=== PATIENT | female | born 1955 | race Caucasian/White ===

== ENCOUNTER 2023-10-09 10:39 | Outpatient (OUT) | payer MEDICARE, SELFPAY ==
--- NOTE | 2023-10-09 10:51 | XR_ITS ---
The [address] [address] Patient Name: RIC BISHOP MRN: [id number] date: 1955 Sex: F Assigned Patient Location: [facility] Current Patient Location: Accession/Order Number: [id number] Exam Date: 10/09/2023 11:00 Report Date: 10/10/2023 06:38 At the request of: SEBASTIÁN BARKSDALE Procedure: XR elbow LT min 3V PROCEDURE: XR elbow LT min 3V HISTORY: Pain In Left Elbow M25.522 ; posterior wall pain since falling 4 days ago COMPARISON: None. FINDINGS: BONES:No fracture, acute abnormality, or significant arthropathy. SOFT TISSUES:Large calcification/degenerative enthesophyte at the flexor tendons insertion into the medial condyle. Additional small corticated calcification distal to the medial condyle most suggestive of heterotopic bone formation from remote injury. EFFUSION:None visible. OTHER: Negative. XR/XR elbow LT min 3V IMPRESSION: 1. No convincing acute fracture. No dislocation or joint effusion. 2. Degenerative changes and suspected sequela of remote injury. Electronically authenticated by: DARIEN YU Date: 10/10/2023 06:38
== END 2023-10-09 10:40 | disposition home or self-care (01) ==
LOC: RAD 10:45
PROVIDERS: PCP Family Medicine; Visit Provider Family Medicine
DX: M25.522 Pain in left elbow (principal)
CPT/HCPCS: 73080

== ENCOUNTER 2023-10-16 09:55 | Outpatient (OUT) | payer MEDICARE, SELFPAY ==
--- NOTE | 2023-10-16 09:59 | MM_ITS ---
Patient Name: RIC BISHOP MR#: [id number] : 1955 Exam Date: 10/16/2023 Ordering Doctor: DR Audra Sandoval M.D. RADIOLOGY REPORT PROCEDURE: MM TOMOSYNTHESIS SCREENING BI COMPARISON: MG MAMM SCREEN KATIE W CAD, 07/23/2018. MG MAMM SCREEN KATIE W CAD, 10/07/2019. INDICATIONS: screening Calculator Name NCI Breast Cancer Risk Assessment Tool 5 Year Breast Cancer Risk 1.90% Lifetime Breast Cancer Risk 5.60% Personal Breast Cancer No Personal Ovarian Cancer No Treatments None Family Cancers Aunt-maternal with breast cancer at age ~60; Grandmother-maternal with uterine cancer at age ~75; Grandmother-paternal with unknown cancer at age ~71. LOCATION: [facility] BREAST COMPOSITION: Heterogeneously dense,which may obscure small masses. FINDINGS: DIAGNOSTIC CATEGORY 2--BENIGN FINDING. NO CHANGE FROM COMPARISON. Scattered benign-appearing nodules are present. Scattered benign-appearing calcifications are present. Scattered benign-appearing lymph nodes are present. RIGHT BREAST: No significant suspicious finding. LEFT BREAST: No significant suspicious finding. RECOMMENDATIONS: ROUTINE MAMMOGRAM AND CLINICAL EVALUATION IN 12 MONTHS. PLEASE NOTE: A NORMAL MAMMOGRAM DOES NOT EXCLUDE THE POSSIBILITY OF BREAST CANCER. A CLINICALLY SUSPICIOUS PALPABLE LUMP SHOULD BE BIOPSIED. Dictated by: Zan Escalona MD on 10/16/2023 at 11:42 Approved by: Zan Escalona MD on 10/16/2023 at 11:43
--- NOTE | 2023-10-16 09:59 | XR_ITS ---
[address] [address] Patient Name: RIC BISHOP MRN: [id number] date: 1955 Sex: F Assigned Patient Location: [facility] Current Patient Location: [facility] Accession/Order Number: [id number] Exam Date: 10/16/2023 10:22 Report Date: 10/16/2023 10:53 At the request of: SEBASTIÁN BARKSDALE Procedure: XR DEXA axial skeleton EXAM: XR DEXA axial skeleton HISTORY: menopause Z78.0 COMPARISON: None. TECHNIQUE: Routine DEXA scan lumbar spine and bilateral hips. FINDINGS: L1-L4: BMD 1.203 g/sq cm and T score 0.2. Left femoral neck: BMD 0.787 g/sq cm and T score -1.8. Left hip total: BMD 0.813 g/sq cm and T score -1.5. Right femoral neck: BMD 0.749 g/sq cm and T score -2.1. Right hip total: BMD 0.804 g/sq cm and T score -1.6. XR/XR DEXA axial skeleton IMPRESSION: Osteopenia. Electronically authenticated by: CATHY ESCOTO Date: 10/16/2023 10:53
== END 2023-10-16 09:56 | disposition home or self-care (01) ==
LOC: MAMMO 09:55
PROVIDERS: PCP Family Medicine; Visit Provider Family Medicine
DX: Z12.31 Encounter for screening mammogram for malignant neoplasm of breast (principal); Z78.0 Asymptomatic menopausal state; Z80.3 Family history of malignant neoplasm of breast; Z80.8 Family history of malignant neoplasm of other organs or systems; Z80.9 Family history of malignant neoplasm, unspecified; M85.80 Other specified disorders of bone density and structure, unspecified site
CPT/HCPCS: 77063; 77067; 77080

== ENCOUNTER 2023-10-26 09:23 | Outpatient (RCR) | payer MEDICARE, SELFPAY | END 2023-10-27 11:16 | disposition home or self-care (01) | LOC: OT 09:23 | PROVIDERS: PCP Family Medicine; Visit Provider Family Medicine | DX: M25.529 Pain in unspecified elbow (principal) | CPT/HCPCS: 97035; 97165 ==

== ENCOUNTER 2024-01-01 14:32 | Outpatient (OUT) | payer MEDICARE, SELFPAY ==
[2024-01-01 15:19] LABS: Basophils Percent Auto 0.4 % (0.2-2.0); Eosinophils Absolute Auto 0.1 10^3/uL (0.0-0.7); Eosinophils Percent Auto 0.8 % (0.9-7.0); Hematocrit 38.4 % (36.0-48.0); Hemoglobin 12.9 g/dL (12.0-16.0); Immature Granulocytes Abs Auto 0.04 10^3/uL (0.00-0.03); Immature Granulocytes Pct Auto 0.5 % (0.0-0.5); Lymphocytes Absolute Auto 1.6 10^3/uL (1.2-3.8); Lymphocytes Percent Auto 21.3 % (20.5-60.0); Mean Corpuscular HGB Conc 33.6 g/dL (29.9-35.2); Mean Corpuscular Hemoglobin 29.9 pg (26.7-34.0); Mean Corpuscular Volume 88.9 fL (81.0-99.0); Mean Platelet Volume 9.6 fL (9.5-13.5); Monocytes Absolute Auto 0.4 10^3/uL (0.3-0.8); Monocytes Percent Auto 5.6 % (1.7-12.0); Neutrophils Absolute Auto 5.4 10^3/uL (1.4-6.5); Neutrophils Percent Auto 71.4 % (43.0-75.0); Platelet Count 218 10^3/uL (150-450); Red Blood Count 4.32 10^6/uL (4.20-5.40); Red Cell Distribution Width 12.4 % (11.0-15.0); White Blood Count 7.6 10^3/uL (4.0-11.0)
[2024-01-01 15:23] LABS: Alanine Aminotransferase 44 U/L (14-59); Albumin Globulin Ratio 1.1; Albumin Level 3.9 g/dL (3.4-5.0); Alkaline Phosphatase 88 U/L (46-116); Anion Gap 14.5; Aspartate Amino Transferase 26 U/L (15-37); BUN Creatinine Ratio 11.4; Bilirubin Total 1.9 mg/dL (0.2-1.0); Calcium 9.8 mg/dL (8.5-10.1); Carbon Dioxide 26.2 mmol/L (21.0-32.0); Chloride 101 mmol/L (98-107); Estimated GFR (African America 57 (>=60); Estimated GFR (Non-African Ame 47 (>=60); Globulin 3.4 g/dL; Glucose 95 mg/dL (74-106); Potassium 3.7 mmol/L (3.5-5.1); Sodium 138 mmol/L (136-145); TSH W/ REFLEX FT4 0.799 uIU/mL (0.358-3.740); Total Protein 7.3 g/dL (6.4-8.2)
[2024-01-01 15:25] LABS: Erythrocyte Sedimentation Rate 16 mm/hr (<=30)
[2024-01-02 06:09] LABS: C-Reactive Protein, Cardiac 0.38 mg/L (0.00-3.00)
[2024-01-03 16:10] LABS: Antinuclear Antibodies, IFA Negative (.)
== END 2024-01-01 14:33 | disposition home or self-care (01) ==
LOC: LAB 14:34
PROVIDERS: PCP Family Medicine; Visit Provider Nurse Practitioner Family
DX: R06.09 Other forms of dyspnea (principal); R53.83 Other fatigue
CPT/HCPCS: 36415; 80053; 82607; 84443; 85025; 85652; 86038; 86140

== ENCOUNTER 2024-01-16 12:56 | Outpatient (OUT) | payer MEDICARE, SELFPAY ==
--- NOTE | 2024-01-16 13:00 | CA_ITS ---
Patient Name: RIC BISHOP MR#: [id number] : 1955 Exam Date: 01/16/2024 Ordering Doctor: ADRI FARFAN CNP ECHOCARDIOGRAM REPORT PROCEDURE: CA ECHO DOPPLER COMPLETE INDICATIONS: Dyspnea on exertion, diabetes, Covid (04/2023) COMPARISON: None. DESCRIPTION: COMPLETE ECHOCARDIOGRAM Real-time transthoracic echocardiography with 2D, M-mode, spectral and color flow Doppler performed. QUALITY: Technical quality was good. 65 , 153#, BSA 1.77 m2, BP 124/86 LEFT VENTRICLE: Normal chamber size. Thickened septal wall. Abnormal septal motion likely related to bundle branch block. Systolic function appears to be at the lower limits of normal. LV EF: Lower limits of normal left ventricular ejection fraction, (50%). DIASTOLIC: Diastolic function is indeterminate. ATRIAL SEPTUM: Visually appears intact. LEFT ATRIUM: Normal chamber size. RIGHT ATRIUM: Normal chamber size. RIGHT VENTRICLE: Normal chamber size. Normal right ventricular systolic function. TRICUSPID VALVE: Normal mobility and thickness. No stenosis with trivial regurgitation. Unable to assess right-sided pressures due to lack of measurable tricuspid regurgitation. MITRAL VALVE: Normal mobility and thickness. No evidence of mitral valve stenosis. There is no mitral annular calcification. Trivial mitral regurgitation. AORTIC VALVE: Normal trileaflet appearance. Thickened aortic valve. Normal leaflet mobility. No evidence of aortic valve stenosis. No aortic regurgitation. AORTIC ROOT: Normal diameter and appearance. Ascending aorta is normal in size. PULMONIC VALVE: Normal thickness and mobility. No stenosis. Mild regurgitation. PERICARDIUM: No evidence of pericardial effusion. IVC: Collapses with inspirations. IVC is normal in size. PLEURA: CONCLUSION: 1. The left ventricle is normal in size and exhibits low normal systolic function. Abnormal septal motion is related to bundle branch block. LVEF is 50%. 2. Normal right ventricular size and systolic function. 3. No significant valvular dysfunction. 4. Unable to assess right-sided pressures due to lack of measurable tricuspid regurgitation. 5. No pericardial effusion. Adult Echocardiography Procedure Report Left Ventricle LVEDD (3.7 - 5.6 cm): 4.98 cm LVESD (2.2 - 4.0 cm): 4.07 cm LVIVS thickness (0.6 - 1.2 cm): 1.06 cm LVPW thickness (0.5 - 1.0 cm): 0.81 cm e': 0.05 m/s E - e': 8.17 LVOT Max Gradient: 1.28 mm[Hg] LVOT Area (cm2): 0.56 m/s Peak Velocity (LVOT): 0.56 m/s LVOT Diameter 2.15 cm Left Atrium LA Volume Index (2D A2C): 28.38 ml/m2 Left Atrium Systolic Dimension: 3.32 cm Mitral Valve MV E to A Ratio: 0.60 Mitral Valve A-Wave Peak Velocity: 0.72 m/s Mitral Valve E-Wave Peak Velocity: 0.43 m/s Right Ventricle Aorta AO Root Diam: 2.92 cm Ascending Ao Diam: 2.52 cm Aortic Valve AoV Area (Peak Cory): 2.20 cm2, 2.20 cm2 Peak Velocity(Antegrade Flow): 0.93 m/s Peak Gradient(Antegrade Flow): 3.44 mm[Hg] Tricuspid Valve Peak Velocity (Regurgitant Flow): 1.97 m/s Pulmonic Valve Mean Gradient: 1.46 mm[Hg] Mean Velocity: 0.56 m/s Peak Velocity: 0.89 m/s, 1.00 m/s Peak Gradient: 4.04 mm[Hg], 3.16 mm[Hg] Right Atrium Right Atrium Systolic Pressure: 40.89 ml, 40.89 ml Dictated by: Jarrett Neff M.D. on 01/17/2024 at 09:24 Approved by: Jarrett Neff M.D. on 01/17/2024 at 09:29
== END 2024-01-16 12:57 | disposition home or self-care (01) ==
LOC: CARD 12:57
PROVIDERS: PCP Family Medicine; Visit Provider Nurse Practitioner Family
DX: R06.09 Other forms of dyspnea (principal); R53.83 Other fatigue
CPT/HCPCS: 93306

== ENCOUNTER 2024-05-06 12:07 | Outpatient (OUT) | payer MEDICARE, SELFPAY ==
--- NOTE | 2024-05-06 12:15 | XR_ITS ---
The [address] [address] Patient Name: RIC BISHOP MRN: [id number] date: 1955 Sex: F Assigned Patient Location: [facility] Current Patient Location: [facility] Accession/Order Number: [id number] Exam Date: 05/06/2024 12:20 Report Date: 05/07/2024 08:38 At the request of: SEBASTIÁN BARKSDALE Procedure: XR lumbar spine 2-3V EXAM: XR hip RT 2V w/ pelvis, XR lumbar spine 2-3V HISTORY: Right Inguinal Pain COMPARISON: None. TECHNIQUE: Routine views were obtained with pelvis and right hip. Routine views of the lumbar spine were obtained. FINDINGS/IMPRESSION: PELVIS WITH RIGHT HIP: 1. There is no evidence of acute fracture or subluxation. 2. 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 LUMBAR SPINE: 1. There is severe loss of disc height with endplate spurring at L5-S1 indicating severe degenerative changes. 2. There is mild loss of disc height with endplate spurring at the remainder of the lumbar spine indicating mild degenerative changes. 3. There is moderate to severe facet joint osteoarthritis at bilateral L4-L5 and L5-S1. Electronically authenticated by: JEOVANY SUERO Date: 05/07/2024 08:38
--- NOTE | 2024-05-06 12:15 | XR_ITS ---
The [address] [address] Patient Name: RIC BISHOP MRN: [id number] date: 1955 Sex: F Assigned Patient Location: [facility] Current Patient Location: [facility] Accession/Order Number: [id number] Exam Date: 05/06/2024 12:20 Report Date: 05/07/2024 08:38 At the request of: SEBASTIÁN BARKSDALE Procedure: XR hip RT 2V w/ pelvis EXAM: XR hip RT 2V w/ pelvis, XR lumbar spine 2-3V HISTORY: Right Inguinal Pain COMPARISON: None. TECHNIQUE: Routine views were obtained with pelvis and right hip. Routine views of the lumbar spine were obtained. FINDINGS/IMPRESSION: PELVIS WITH RIGHT HIP: 1. There is no evidence of acute fracture or subluxation. 2. 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 LUMBAR SPINE: 1. There is severe loss of disc height with endplate spurring at L5-S1 indicating severe degenerative changes. 2. There is mild loss of disc height with endplate spurring at the remainder of the lumbar spine indicating mild degenerative changes. 3. There is moderate to severe facet joint osteoarthritis at bilateral L4-L5 and L5-S1. Electronically authenticated by: JEOVANY SUERO Date: 05/07/2024 08:38
--- OUTSIDE RECORDS SUMMARY | 2024-05-06 12:17 | XMS_ITS | CCD ---
Author Organization [facility] Care Team Providers Care Social Economist Name Role Phone UNKNOWN, PROVIDER Admitting Unavailable UNKNOWN, PROVIDER Attending Unavailable AUDRA BARKSDALE Referring Unavailable AUDRA BARKSDALE Primary Care Unavailable LASHON, AVTAR Admitting Unavailable LASHONDEMETRIUSAVTAR Attending Unavailable SHAMIR, DR AUDRA Koenig Primary Care Unavailable GIGI, DR DARIEN Brady Consulting Unavailable SHAMIR, DR AUDRA Koenig Consulting Unavailable LASHON, AVTAR Consulting Unavailable LASHON, AVTAR Admitting Unavailable LASHON, AVTAR Attending Unavailable SHAMIR, DR AUDRA Koenig Primary Care Unavailable ELIZABETH MALIN Consulting Unavailable LASHON, AVTAR Consulting Unavailable Audra Barksdale Unavailable Audra Barksdale MD Primary Care Provider LILIA RASCON Attending Unavailab AUDRA Pereira Referring Unavailable AUDRA BARKSDALE Primary Care Unavailable ADRI FARFAN Attending Unavailable Allergies Allergy Classification Reported Allergen(s) Allergy Type Date of Onset Reaction(s) Facility Amino Acids (1 source) Amino Acids Drug Allergy 09-15-19 17 [facility] Opioid Agonists (1 source) Meperidine Drug Allergy 09-03-18 80 [facility] Tetracyclines (antibiotic) (1 source) Tetracycline Drug Allergy 09-03-18 80 [facility] (2 sources) Amino Acids; Translations: [LISINOPRIL] Drug Allergy 11-09-19 18 [facility] (3 sources) Lisinopril Drug Allergy 11-09-19 18 Cough, Other: See Comments [facility] (4 sources) Meperidine; Translations: [MEPERIDINE] Drug Allergy 09-03-18 80 Hives, Itching [facility] (6 sources) Tetracycline; Translations: [TETRACYCLINE] Drug Allergy 09-03-18 80 Swelling, Hives, Other: See Comments [facility] (2 sources) Allergies Reconciled Propensity to adverse reactions Unknown inDplay Other (2 sources) patient allergy list reviewed by nurse or physicia Propensity to adverse reactions 09-18-19 19 Comment:Done inDplay Other (1 source) Amino Acids Drug Allergy 09-15-19 17 Unknown [facility] (1 source) Soy protein; Translations: [SOY] Propensity to adverse reactions to drug (disorder) 01-01-20 [facility] Medications Completed/Discontinued Medications Medication Drug Class(es) Dates Sig (Normalized) Sig (Original) aspirin 81 mg delayed release oral tablet (3 sources) Platelet Aggregation Inhibitor, Nonsteroidal Anti-inflammatory Drug Start: 04-05-2021 take 1 tablet by mouth once daily aspirin, enteric coated (ASPIRIN, ENTERIC COATED) 81 mg EC tablet Take 1 tablet by mouth once daily. 0 04/05/2021 Active Comment on above: Take 1 tablet by elenita once daily. atorvastatin 20 mg oral tablet (3 sources) HMG-CoA Reductase Inhibitor Start: 10-27-2023 take 1 tablet by mouth once daily at bedtime atorvastatin (LIPITOR) 20 mg tablet Take 20 mg by mouth daily at bedtime. 0 10/27/2023 Active Start: 04-05-2021 take 20 mg by mouth once daily Atorvastatin Calcium 20 MG Atorvastatin Calcium( 20MG Oral daily ) Active -Hx Entry Oral daily for 0 Apr, Active Comment on above: Take 20 mg by mouth daily at bedtime. 24 hr isosorbide mononitrate 30 mg extended release oral tablet (3 sources) Nitrate Vasodilator Start: take 1 tablet by mouth once daily, then take 1 tablet by mouth every twenty-four hours isosorbide mononitrate ER (IMDUR) 30 mg 24 hr tablet Take 30 mg by mouth once daily. 0 10/27/2023 Active Start: 04-05-2021 take 30 mg by mouth once daily Isosorbide Mononitrate ER 30MG Isosorbide Mononitrate ER( 30MG Oral daily ) Active -Hx Entry Oral daily *Pick strength-form from Emailage for eRX* Apr, Active Comment on above: Take 30 mg by mouth once daily. losartan potassium 100 mg oral tablet (3 sources) Angiotensin 2 Receptor Fernanda Start: 10-29-2023 take 1 tablet by mouth once losartan (COZAAR) 100 mg tablet Take 1 tablet by mouth every afternoon. 0 10/29/2023 Active Start: 01-07-2020 Losartan Fito lang 100 MG Losartan Potassium 50MG, 1 (one) Tablet daily # 30, 01/07/2020, No Refill. Active Oral daily *Pick strength-form from Emailage for eRX* January, Active Comment on above: Take 1 tablet by elenita th every afternoon. 24 hr metoprolol succinate 50 mg extended release oral tablet (3 sources) beta-Adrenergic Fernanda Start: 10-27-2023 take 1 tablet by mouth every hour metoprolol succinate ER (TOPROL XL) 50 mg 24 hr tablet Take 1 tablet by mouth every afternoon. 0 10/27/2023 Active Start: 04-05-2021 take 50 mg by mouth once daily Metoprolol Succinate ER 50MG Metoprolol Succinate ER( 50MG Oral daily ) Active -Hx Entry Oral daily *Pick strength-form from Emailage for eRX* Apr, Active Comment on above: Take 1 tablet by elenita th every afternoon. spironolactone 25 mg oral tablet (3 sources) Aldosterone Antagonist Start: 10-06-2022 spironolactone (ALDACTONE) 25 mg tablet Spironolactone 25 MG 1/2 tablet every am Active 0 10/06/2022 Active Spironolactone 2 5 MG 1/2 tablet every am Active Comment on above: Spironolactone 25 MG 1/2 tablet every am Active Problems Active Problems Problem Classification Problem Date Documented Date Episodic/Chronic Abdominal pain (2 sources) Abdominal pain; Translations: [Unspecified abdominal pain] Episodic Acute bronchitis (2 sources) Acute bronchitis; Translations: [Acute bronchitis, unspecified] Episodic Cancer of uterus (5 sources) Malignant neoplasm of corpus uteri, excluding isthmus; Translations: [Malignant neoplasm of endometrium] Onset: 11-20-2017 10-18-2023 Chronic Cancer of uterus (3 sources) H/O: malignant neoplasm; Translations: [Personal history of malignant neoplasm of other parts of uterus] Episodic Essential hypertension (3 sources) Essential hypertension; Translations: [Essential (primary) hypertension] Chronic Genitourinary symptoms and ill-defined conditions (1 source) Genuine stress incontinence; Translations: [Stress incontinence (female) (male)] 11-14-2023 Chronic Malaise and fatigue (2 sources) Other fatigue; Translations: [Other fatigue] Onset: 01-01-2024 Episodic Menopausal disorders (2 sources) Postmenopausal bleeding; Translations: [Postmenopausal bleeding] Chronic Nonspecific chest pain (6 sources) Precordial pain; Translations: [Chest pain] Onset: 09-21-2020 Episodic Other aftercare (2 sources) History and physical examination, follow-up; Translations: [Encounter for follow-up examination after completed treatment for conditions other than malignant neoplasm] Episodic Other aftercare (1 source) History of malignant neoplasm of endometrium; Translations: [Encounter for follow-up examination after completed treatment for malignant neoplasm] 11-14-2023 Episodic Other and ill-defined heart disease (2 sources) Heart disease; Translations: [Other ill-defined heart diseases] Chronic Other female genital disorders (2 sources) Abnormal uterine bleeding; Translations: [Abnormal uterine and vaginal bleeding, unspecified] Onset: 08-03-2017 Chronic Other injuries and conditions due to external causes (2 sources) History of fall; Translations: [History of falling] Episodic Other lower respiratory disease (6 sources) Other forms of dyspnea; Translations: [OTHER FORMS OF DYSPNEA] Onset: 04-04-2021 Episodic Other lower respiratory disease (2 sources) Dyspnea; Translations: [Shortness of breath] Episodic Other non-traumatic joint disorders (1 source) Pain in left elbow Episodic Other nutritional; endocrine; and metabolic disorders (2 sources) Overweight; Translations: [Overweight] Episodic Other screening for suspected conditions (not mental disorders or infectious disease) (1 source) Encounter for screening mammogram for malignant neoplasm of breast Episodic Prolapse of female genital organs (1 source) Disorder of rectum; Translations: [Rectocele] 11-14-2023 Chronic Regional enteritis and ulcerative colitis (7 sources) Crohn's disease, unspecified, without complications; Translations: [Crohn's disease] Onset: 08-03-2017 Chronic Residual codes; unclassified (1 source) Asymptomatic menopausal state Episodic Unclassified (1 source) CONTACT W/AND (SUSP) EXPOS COVID-19; Translations: [CONTACT W/AND (SUSP) EXPOS COVID-19] Onset: 09-27-2020 Past or Other Problems Problem Classification Problem Date Documented Date Episodic/Chronic Other non-traumatic joint disorders (2 sources) Shoulder joint pain; Translations: [Pain in right shoulder] Onset: 07-23-2018 Episodic Other nutritional; endocrine; and metabolic disorders (2 sources) Body mass index 25-29 - overweight; Translations: [Body mass index 27.0-27.9, adult] Onset: 11-06-2017 Episodic Other upper respiratory infections (2 sources) Acute maxillary sinusitis; Translations: [Acute recurrent maxillary sinusitis] Onset: 09-18-2018 Episodic Otitis media and related conditions (2 sources) Acute secretory otitis media; Translations: [Other acute nonsuppurative otitis media, right ear] Onset: 09-18-2018 Episodic Results Test Name Value Interpretation Reference Range Facility Office Visiton 01-01-2024 Follow-up visit [id number] Dillan Matthews 1955 F Date Provider Department Center 01/01/2024 Mitali-ADRI FARFAN [facility] Family History Problem Relation Age of Onset Supraventricular tachycardia Mother Heart attack Father Deep vein thrombosis Father Family Status - Relation Status Age at Mother Father Level of Service:43450 [place] OFFICE/OUTPATIENT ESTABLISHED MOD MDM 30 MIN Reason for Visit and Comments: Follow-up [067366] - 1 year Normal [facility] CNOVSPon 11-14-2023 CNOVSP Visit (SP) Office (GYNOSA) DILLAN MATTHEWS ([id number]) 1955 F Date Time Provider Department 11/14/23 10:00 AM LILIA RASCON During your visit today, we recorded the following information about you: Temperature Pulse Respiration Blood pressure 97.6 degrees 75/minute 18/minute 117/63 Weight 71 kg Lilia Rascon MD 11/14/2023 11:42 AM Signed DATE OF SERVICE: 11/14/2023 REASON FOR VISIT: history of endometrial cancer-establish care Consultation requested by Dr. Audra Barksdale. My final recommendations will be communicated back to the requesting physician by way of shared Medical record or letter to requesting physician via US mail. DIAGNOSIS: 2018 history stage IA grade 1 endometrial cancer HPI: Audra Barksdale is a 68 yo female with a past medical history of HTN, HLD, angina, Crohn's disease and endometrial cancer. She was seen and treated at [facility]. She is here for follow up transfer of care. No vaginal discharge or bleeding. Patient states x 1 year has a prolapse, causing her to have to reduce it in order to have a good bowel movement. 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 No issues since 2018 surgery. SUBJECTIVE: Dillan Matthews reports she is feeling well. She was seen and treated at [facility]. She is here for follow up transfer of care since her previous [facility]te[facility] onc is no longer practing. No vaginal discharge or bleeding. Patient states she has had a prolapse for a year , causing her to have to reduce it in order to have a good bowel movement. No issues since 2018 surgery. 11/20/2017 FINAL DIAGNOSIS Review of slides from [facility] ([id number], 11/20/2017) 1. Uterus, cervix, bilateral ovaries and fallopian tubes, hysterectomy with bilateral salpingo-oophorectomy : - Cervix: No significant pathologic abnormality. - Endometrium: Endometrioid adenocarcinoma with squamous differentiation, FIGO grade 1, invasive into inner half of the myometrium; see comment. - Myometrium: Leiomyoma. - Left fallopian tube: Paratubal cysts. - Left ovary: No significant pathologic abnormality. - Right fallopian tube: Paratubal cysts. - Right ovary: Surface adhesions. 2. Periaortic lymph nodes, excision: Benign lymph nodes (0/3 per report). 3. Vagina, biopsy: Benign squamous mucosa. 4. Omentum, excision: Benign fibroadipose tissue. 5. Left pelvic lymph nodes, excision: Benign lymph nodes (0/3 per report). 6. Right pelvic lymph nodes, excision: Benign lymph nodes (0/5 per report). DATE OF LAST VISIT: n/a OBSTETRIC/ GYNECOLOGY HISTORY: Gynecologic surgery: see above LMP: menopausal Last Pap: Last HPV: PAST MEDICAL HISTORY Diagnosis Date Angina pectoris (HCC) Crohn's disease (HCC) Endometrial cancer (HCC) 2018 HLD (hyperlipidemia) HTN (hypertension) PAST SURGICAL HISTORY Procedure Laterality Date APPENDECTOMY BOWEL RESECTION HX REMOVAL GALLBLADDER No significant family history HEALTH MAINTENANCE: Last mammogram: 10/16/2023-negative DEXA-10/16/2023-osteop enia ECOG performance status ECOG PERFORMANCE STATUS: 0- Fully active, able to carry on all pre-disease performance w/o restriction. REVIEW OF SYSTEMS PAIN ASSESSMENT: Negative for pain, history of chronic pain, or current treatment for a chronic pain condition. GENERAL: No weight loss, malaise or fevers HEENT: Negative for frequent or significant headaches, No changes in hearing or vision, no nose bleeds or other nasal problems NECK: Negative for lumps, goiter, pain and significant neck swelling RESPIRATORY: Negative for cough, hemoptysis, wheezing, COPD, dyspnea or shortness of breath CARDIOVASCULAR: feels well, has angina history, on cardiac meds GI: No nausea, vomiting, or diarrhea : No history of dysuria, frequency or incontinence [employer]: Negative for abnormal vaginal bleeding, abnormal vaginal discharge MUSCULOSKELETAL: Negative for joint pain or swelling, back pain or muscle pain SKIN: Negative for lesions, rash, and itching PSYCH: situational depresson, recently HEMATOLOGY/LYMPHOLOGY : Negative for prolonged bleeding, bruising easily or swollen nodes ENDOCRINE: Negative for cold or heat intolerance, polyuria, polydipsia and goiter NEURO: No history of headaches, syncope, paralysis, seizures or tremors OBJECTIVE: VITALS: BP 117/63 Pulse 75 Temp (Src) 97.6 (Temporal) Resp 18 Wt 156 lb 8.4 oz (71.0kg) SpO2 97% GENERAL: alert, oriented, pleasant, and cooperative. ABDOMEN: Abdomen soft, non-tender, no palpable masses present HEENT: no adenopathy PELVIC: External genitalia, anus and urethral meatus are normal in appearance and without lesions. Vagina normal in appearance on speculum examination. Posterior and apical prolapse present, urethral hypermobility. Cervix surgically absent. Bimanual pel (more content not included)... Normal [facility] OUTSIDE SURG PATH SLIDE REVI EWon 11-05-2023 CASE REPORT Normal [facility] Comment on above: Order Comment: Speci men Type: FORMALIN-FIXED PARAFFIN-EMBEDDED TISSUE SPECIMEN Ordering Facility: [facility] Review Address: , , Result Comment: [facility] Pathology Report Case: [id number] Authorizing Provider: Lilia Rascon MD Collected: 11/05/2023 02:19 PM Ordering Location: [facility] Received: 11/05/2023 02:19 PM [facility] Pathologist: Freda Velasquez MD Specimen: SLIDE(S), 32 SLIDES [id number] Performed By: #### L [id number] #### [facility] CLIA [id number] [address] [place] [address] DIAGNOSIS COMMENT The tumor shows invasion into inner half of the myometrium (33% per report). No lymphovascular space invasion is identified. Normal [facility] Comment on above: Order Comment: Speci men Type: FORMALIN-FIXED PARAFFIN-EMBEDDED TISSUE SPECIMEN Ordering Facility: [facility] Review Address: , , Performed By: #### L [id number] #### [facility] CLIA [id number] [address] [place] [address] FINAL DIAGNOSIS Normal [facility] Comment on above: Order Comment: Speci men Type: FORMALIN-FIXED PARAFFIN-EMBEDDED TISSUE SPECIMEN Ordering Facility: [facility] Review Address: , , Result Comment: Revi ew of slides from [facility] ([id number], 11/20/2017) 1. Uterus, cervix, bilateral ovaries and fallopian tubes, hysterectomy with bilateral salpingo-oophorectomy: - Cervix: No significant pathologic abnormality. - Endometrium: Endometrioid adenocarcinoma with squamous differentiation, FIGO grade 1, invasive into inner half of the myometrium; see comment. - Myometrium: Leiomyoma. - Left fallopian tube: Paratubal cysts. - Left ovary: No significant pathologic abnormality. - Right fallopian tube: Paratubal cysts. - Right ovary: Surface adhesions. 2. Periaortic lymph nodes, excision: Benign lymph nodes (0/3 per report). 3. Vagina, biopsy: Benign squamous mucosa. 4. Omentum, excision: Benign fibroadipose tissue. 5. Left pelvic lymph nodes, excision: Benign lymph nodes (0/3 per report). 6. Right pelvic lymph nodes, excision: Benign lymph nodes (0/5 per report). Performed By: #### L [id number] #### [facility] CLIA [id number] [address] [place] [address] FINAL PERFORMING LAB Normal [facility] Comment on above: Order Comment: Speci men Type: FORMALIN-FIXED PARAFFIN-EMBEDDED TISSUE SPECIMEN Ordering Facility: Outside Review Address: , , Result Comment: Diag nostic interpretation performed at [facility], [address] [place] [address] CLIA# [id number] [employer]ap Security Architect: Tone Chu M.D. Performed By: #### L [id number] #### [facility] CLIA [id number] [address] [place] [address] ECHOCARDIO M/2D COMPLETEon 0 04-04-2021 ECHOCARDIO M/2D COMPLETE Patient: DILLAN MATTHEWS Exam Date: 04/04/2021 : 1955 Gender:F Ordering : AVTAR OATES Admission #: [id number] Family : DR AUDRA BARKSDALE M.D. Order #: [id number] CLICK HERE TO VIEW EXAM ECHOCARDIOGRAM REPORT PROCEDURE: CARDIO PULMONARY ECHOCARDIO M/2D COMP INDICATIONS: CEJA COMPARISON: None. DESCRIPTION: COMPLETE ECHOCARDIOGRAM Real-time transthoracic echocardiography with 2D, M-mode, spectral and color flow Doppler performed. QUALITY: Technical quality was good. LEFT VENTRICLE: Normal chamber size. Mild concentric left ventricular hypertrophy. Normal left ventricular systolic function with an ejection fraction of 60%. LV EF: DIASTOLIC: Grade I diastolic dysfunction. ATRIAL SEPTUM: LEFT ATRIUM: Normal chamber size. RIGHT ATRIUM: Normal chamber size. RIGHT VENTRICLE: Normal chamber size. Normal right ventricular systolic function. TRICUSPID VALVE: Normal mobility and thickness. No stenosis with trace regurgitation. No evidence of pulmonary hypertension. RVSP is 24mmHg. MITRAL VALVE: Normal mobility and thickness. No mitral valve prolapse. No evidence of mitral valve stenosis. There is no mitral annular calcification. No mitral regurgitation. AORTIC VALVE: Normal trileaflet appearance. No visible sclerosis. Normal leaflet mobility. No evidence of aortic valve stenosis. No aortic regurgitation. AORTIC ROOT: Normal diameter and appearance. PULMONIC VALVE: Normal thickness and mobility. No stenosis. Mild regurgitation. PERICARDIUM: No evidence of pericardial effusion. IVC: Collapes with inspirations. PLEURA: CONCLUSION: 1. Normal ventricular systolic function. 2. Mild diastolic dysfunction. 3. Normal right sided pressures. 4. No significant valvular dysfunction. Adult Echocardiography Procedure Report Left Ventricle LVEDD (3.7 - 5.6 cm): 4.10 cm LVESD (2.2 - 4.0 cm): 2.76 cm LVIVS thickness (0.6 - 1.2 cm): 1.18 cm LVPW thickness (0.5 - 1.0 cm): 9.80 mm e': 6.58 cm/s E - e': 8 LVOT Area (cm2): 3.46 cm2 Peak Velocity (LVOT): 83.40 cm/s LVOT Diameter 2.10 cm Left Ventricular Ejection Fraction: 61.60 % Left Ventricular Ejection Fraction (A4C): 65 % Left Atrium LA Volume Index (2D A2C): 27.90 ml/m2 Left Atrium Systolic Dimension: 3.40 cm Left Atrium Systolic Area(A2C): 18.10 cm2 Left Atrium Systolic Area(A4C): 18.50 cm2 Left Atrium Systolic Volume(A2C): 52338 mm3 Left Atrium Systolic Volume(A4C): 95828 mm3 Mitral Valve MV E to A Ratio: 0.70 Mitral Valve A-Wave Peak Velocity: 78.50 cm/s Mitral Valve E-Wave Peak Velocity: 41.50 cm/s Deceleration Door: 2450 mm/s2 Mitral Valve A-Wave Peak Velocity: 79.50 cm/s Mitral Valve E-Wave Peak Velocity: 52.80 cm/s Right Ventricle RV Internal Diastolic Dimension: 2.91 cm Aorta AO Root Diam: 2.90 cm Aortic Valve Peak Velocity (Antegrade Flow): 114.00 cm/s AoV Area (Peak Cory): 2.51 cm2 Aortic Valve Cusp Separation: 1.70 cm Peak Velocity(Antegrade Flow): 124.00 cm/s Peak Gradient(Antegrade Flow): 6 mm[Hg] Tricuspid Valve Peak Velocity (Regurgitant Flow): 175.00 cm/s, 200.00 cm/s Pulmonic Valve Peak Velocity: 107.00 cm/s Peak Gradient: 5 mm[Hg] Right Atrium Dictated by: Jarrett Neff M.D. on 04/04/2021 at 17:45 Approved by: Jarrett Neff M.D. on 04/04/2021 at 17:48 Normal [facility] HEMOGLOBINon 04-04-2021 Hemoglobin (Bld) [Mass/Vol] 13.2 g/dL Normal 12.0-16.0 [facility] Comment on above: Performed By: #### H GB #### [facility] [address] [place] [address] José Miguel Carol CBC AUTO DIFFon 09-21-2020 BASO # 0.0 103/ul Normal 0.0-0.1 [facility] Comment on above: Performed By: #### C BC #### [facility] [address] [place], [place] [id number] José Miguel Carol Basophils/100 WBC (Bld) 0.5 % Normal 0.2-2.0 [facility] Comment on above: Performed By: #### C BC #### [facility] [address] [place], [place] [id number] José Miguel Carol EO # 0.1 103/ul Normal 0.0-0.7 [facility] Comment on above: Performed By: #### C BC #### [facility] [address] [place] [address] José Miguel Carol Eosinophils/100 WBC (Bld) 1.7 % Normal 0.9-7.0 [facility] Comment on above: Performed By: #### C BC #### [facility] [address] [place], [place] [id number] José Miguel Carol Erythrocyte distribution width (RBC) [Ratio] 14.5 % Normal 11.0-15.0 [facility] Comment on above: Performed By: #### C BC #### [facility] [address] [place], [place] [id number] José Miguel Carol Hematocrit (Bld) [Volume fraction] 42.2 % Normal 36.0-48.0 [facility] Comment on above: Performed By: #### C BC #### [facility] [address] [id number] José Miguel Carol Hemoglobin (Bld) [Mass/Vol] 14.3 g/dL Normal 12.0-16.0 [facility] Comment on above: Performed By: #### C BC #### [facility] [address] [place] [address] José Miguel Carol IG # 0.01 10e3/ul Normal 0.00-0.03 [facility] Comment on above: Performed By: #### C BC #### [facility] [address] [place] [address] José Miguel Carol IG % 0.1 % Normal 0.0-0.5 [facility] Comment on above: Performed By: #### C BC #### [facility] [address] [place] [address] José Miguel Carol LYMPH # 1.6 103/ul Normal 1.2-3.8 [facility] Comment on above: Performed By: #### C BC #### [facility] [address] [place] [address] José Miguel Carol Lymphocytes/100 WBC (Bld) 19.3 % Critically low 20.5-60.0 [facility] Comment on above: Performed By: #### C BC #### [facility] [address] [place] [address] José Miguelvasquez Medina MANUAL DIFF REQ NO Normal [facility] Comment on above: Performed By: #### C BC #### [facility] [address] [place] [address] José Miguel Carol MCH (RBC) [Entitic mass] 30.5 pg Normal 26.7-34.0 [facility] Comment on above: Performed By: #### C BC #### [facility] [address] [place], [place] [id number] José Miguel Carol MCHC (RBC) [Mass/Vol] 33.9 g/dL Normal 29.9-35.2 [facility] Comment on above: Performed By: #### C BC #### [facility] [address] [place] [address] José Miguel Medina MCV (RBC) [Entitic vol] 90.0 fL Normal 81.0-99.0 [facility] Comment on above: Performed By: #### C BC #### [facility] [facility] [address] [address] José Miguel Medina MONO # 0.3 103/ul Normal 0.3-0.8 [facility] Comment on above: Performed By: #### C BC #### [facility] [address] [address] José Miguel Medina Monocytes/100 WBC (Bld) 3.3 % Normal 1.7-12.0 [facility] Comment on above: Performed By: #### C BC #### [facility] [address] [place] [address] José Miguel Medina NEUT # 6.1 103/ul Normal 1.4-6.5 [facility] Comment on above: Performed By: #### C BC #### [facility] [address] [place] [address] José Miguel Medina Neutrophils/100 WBC (Bld) 75.1 % Critically high 43.0-75.0 [facility] Comment on above: Performed By: #### C BC #### [facility] [address] [place] [address] José Miguel Medina Platelet mean volume (Bld) [Entitic vol] 12.5 fL Normal 9.5-13.5 [facility] Comment on above: Performed By: #### C BC #### [facility] [address] [place] [address] José Miguelvasquez Franklinen PLT 304 103/ul Normal 150-450 [facility] Comment on above: Performed By: #### C BC #### [facility] [address] [place], [place] [id number] José Miguel Carol RBC 4.69 106/ul Normal 4.20-5.40 [facility] Comment on above: Performed By: #### C BC #### [facility] [address] [place] [address] José Miguel Carol WBC 8.2 103/ul Normal 4.0-11.0 [facility] Comment on above: Performed By: #### C BC #### [facility] [address] [place], [place] [address] José Miguel Medina CRPon 09-21-2020 CRP [Mass/Vol] mg/L Normal <=1.0 [facility] Comment on above: Performed By: #### C RP, CMP #### [facility] [address] [id number] José Miguel Medina Covid-19 PCR (CVDTBH)on 09-03 EUA Statement SEE BELOW Normal [facility] Comment on above: Result Comment: This test is not yet approved or cleared by the [place] FDA. When there are no FDA-approved or cleared tests available, and other criteria are met, FDA can make tests available under an emergency access mechanism called an Emergency Use Authorization (EUA). The EUA for this test is supported by the Landscape Designer of Health and Human Service?s (HHS?s) declaration that circumstances exist to justify the emergency use of in vitro diagnostics for the detection and/or diagnosis of the virus that causes COVID-19. This EUA will remain in effect (meaning this test can be used) for the duration of the COVID-19 declaration justifying emergency of IVDs, unless it is terminated or revoked by FDA (after which the test may no longer be used). When diagnostic testing is negative, the possibility of a false negative should be considered in the context of a patients recent exposures and the presence of clinical signs and symptoms consistent with SARS-CoV-2. Performed By: #### C VDTBH #### [facility] [address] [address] José Miguel Medina SARS-CoV-2 (COVID-19) RNA DAVID+probe Ql (Unsp spec) Not detected Normal NOT DETECTED [facility] Comment on above: Result Comment: This test is not yet approved or cleared by the [place] FDA. When there are no FDA-approved or cleared tests available, and other criteria are met, FDA can make tests available under an emergency access mechanism called an Emergency Use Authorization (EUA). The EUA for this test is supported by the Landscape Designer of Health and Human Service's (HHS's) declaration that circumstances exist to justify the emergency use of in vitro diagnostics for the detection and/or diagnosis of the virus that causes COVID-19. This EUA will remain in effect (meaning this test can be used) for the duration of the COVID-19 declaration justifying emergency of IVDs, unless it is terminated or revoked by FDA (after which the test may no longer be used). Performed By: #### C VDTB #### [facility] [address] [place] [address] José Miguel Medina PROF 14(COMP METB)on 021 Albumin [Mass/Vol] 3.7 g/dL Normal 3.5-5.0 [facility] Comment on above: Performed By: #### C RP, CMP #### [facility] [address] [place], [place] [id number] José Miguelvasquez Medina Albumin/Globulin [Mass ratio] 1.1 {ratio} Normal [facility] Comment on above: Performed By: #### C RP, CMP #### [facility] [address] [place], [place] [id number] José Miguel Carol ALP [Catalytic activity/Vol] 90 U/L Normal 38-126 [facility] Comment on above: Performed By: #### C RP, CMP #### [facility] [address] [place], [place] [id number] José Miguel Carol ALT [Catalytic activity/Vol] 37 U/L Normal 9-52 [facility] Comment on above: Performed By: #### C RP, CMP #### [facility] [address] [place], [place] [id number] José Miguel Carol Anion gap [Moles/Vol] 14.4 mmol/L Normal [facility] Comment on above: Performed By: #### C RP, CMP #### [facility] [address] [place], [place] [id number] José Miguel Carol AST [Catalytic activity/Vol] 26 U/L Normal 14-36 [facility] Comment on above: Performed By: #### C RP, CMP #### [facility] [address] [place], [place] [id number] José Miguel Carol Bilirubin [Mass/Vol] 1.2 mg/dL Normal 0.2-1.3 [facility] Comment on above: Performed By: #### C RP, CMP #### [facility] [address] [place] [address] José Miguel Carol Calcium [Mass/Vol] 9.3 mg/dL Normal 8.4-10.2 [facility] Comment on above: Performed By: #### C RP, CMP #### [facility] [address] [place] [address] José Miguel Carol Chloride [Moles/Vol] 106 mmol/L Normal 98-107 [facility] Comment on above: Performed By: #### C RP, CMP #### [facility] [address] [place] [address] José Miguel Carol CO2 [Moles/Vol] 22.5 mmol/L Normal 22.0-30.0 [facility] Comment on above: Performed By: #### C RP, CMP #### [facility] [address] [place] [address] José Miguel Carol Creatinine [Mass/Vol] 0.91 mg/dL Normal 0.52-1.04 [facility] Comment on above: Performed By: #### C RP, CMP #### [facility] [address] [place] [address] José Miguel Carol EGFR-AF ANDORRAN >60 Normal >=60 [facility] Comment on above: Performed By: #### C RP, CMP #### [facility] [address] [place] [address] José Miguel Carol EGFR-NON AF ANDORRAN >60 Normal >=60 [facility] Comment on above: Performed By: #### C RP, CMP #### [facility] [address] [place] [address] José Miguel Carol Globulin (S) [Mass/Vol] 3.5 g/dL Normal [facility] Comment on above: Performed By: #### C RP, CMP #### [facility] [address] [place] [address] José Miguel Carol Glucose [Mass/Vol] 129 mg/dL Critically high 74-106 [facility] Comment on above: Performed By: #### C RP, CMP #### [facility] [address] [place], [place] [address] José Miguel Carol Potassium [Moles/Vol] 3.9 mmol/L Normal 3.4-5.0 [facility] Comment on above: Performed By: #### C RP, CMP #### [facility] [address] [place], [place] [address] José Miguel Carol Protein [Mass/Vol] 7.2 g/dL Normal 6.1-8.2 [facility] Comment on above: Performed By: #### C RP, CMP #### [facility] [address] [place], [place] [address] José Miguel Carol Sodium [Moles/Vol] 139 mmol/L Normal 137-145 [facility] Comment on above: Performed By: #### C RP, CMP #### [facility] [address] [place], [place] [address] José Miguel Carol Urea nitrogen [Mass/Vol] 16.0 mg/dL Normal 7.0-17.0 [facility] Comment on above: Performed By: #### C RP, CMP #### [facility] [address] [place], [place] [address] José Miguel Carol Urea nitrogen/Creatinine [Mass ratio] 17.6 mg/mg Normal [facility] Comment on above: Performed By: #### C RP, CMP #### [facility] [address] [place], [place] [address] José Miguel Carol SED RATE [facility] 2020 SED RATE 5 mm/hr Normal <=30 [facility] Comment on above: Performed By: #### S EDR #### [facility] [address] [place], [place] [address] José Miguel Carol XR CHEST 2 Von 09-21-2020 XR CHEST 2 V EXAMINATION: XR CHES T 2 V HISTORY: Precordial pain ; acute chest pain, hypertension COMPARISON: Chest x-ray 06-04-15 FINDINGS: LUNGS: No significant pulmonary parenchymal abnormalities. VASCULATURE: No increased pulmonary vasculature. PLEURA: No pneumothorax, effusion, or pleural thickening. CARDIAC: No cardiomegaly or cardiac silhouette abnormality. MEDIASTINUM: No visible mass or adenopathy. BONES: No fracture or visible bone lesion. OTHER: Negative. IMPRESSION: 1. No acute cardiopulmonary process. Electronically authenticated by: DARIEN YU Date: 2020-09-21 11:43 Normal [facility] Cardiovascular Lab Reporton 02-07-2020 Cardiovascular Lab Report [facility] Patient Name: [facility] Jessica Grimaldo MR #: [id number] Department of Physician: Jarrett Vale Swapnil Neff M.D. Division of Service Date: 02/06/2020 Cardiology Birthdate: 1955 Adult Cardiovascular Room #: [facility] [address] [facility]. [address] [address] Cardiovascular Laboratory Report INDICATION: The patient is a 64-year-old woman, who was evaluated in Cardiology Clinic because of recurrent symptoms of chest pain at rest. She was started on dual antianginal therapy, which improved her symptoms. However, she still continued to have symptoms of chest pain. Because of that, she was referred for cardiac catheterization. PROCEDURE: Bilateral selective coronary angiography from the right radial access. METHODS: Procedure was explained to the patient with risks and benefits. She signed informed consent. She was brought to laboratory operations coordinator in a fasting state. The right wrist area was prepped and draped in usual fashion. Modified Marcelo's test was favorable. Access in right radial artery was obtained using micropuncture technique. A 6-Filipino x 11 cm sheath was placed. Verapamil was given through the sheath and heparin was administered intravenously. Bilateral selective coronary angiography was then performed using 6-Filipino JR5 and JL3.5 diagnostic catheters. Initial catheter advancement was made feasible using an angled Glidewire to overcome brachial tortuosities. Catheters were removed. Procedure was concluded. A TR band was used for hemostasis in the radial artery. She tolerated the procedure well. She will be observed for 3 hours and then discharged to home. TOTAL FLUORO TIME: 2.56 minutes. TOTAL AIR KARMA: 256 mGy. TOTAL CONTRAST VOLUME: 45 mL. HEMODYNAMICS: AO 145/73, mean 104. CORONARY ANGIOGRAPHY: This is a right dominant circulation. Left main arises from left coronary cusp. It bifurcates into left anterior descending and circumflex vessels. Left main is free of disease. Left anterior descending. This is free of disease. Circumflex vessel is free of disease. Right coronary artery. This arises from right coronary cusp. It is a large and dominant vessel. It is free of disease. SUMMARY OF THE FINDINGS: Normal coronary angiogram. RECOMMENDATIONS: 1. Continue medical therapy. 2. The patient's symptoms may be related to spasm. Therefore, we will continue nitrate therapy and follow up response in Cardiology Clinic. Electronically Signed by: Jarrett Neff M.D. 02/08/2020 11:05 P Jarrett Neff M.D. Date Dict: 02/06/2020/03:03 P/Jarrett Neff M.D. Date Trans: 02/07/2020 01:03 A/angel [id number] Normal [facility] Vital Signs Date Time Vital Sign Value Performing Clinician Facility 11-14-2023 10:31-0400 Body temperature 97.59 [degF] Lilia Rascon MD Work Phone: [facility] 11-14-2023 10:31-0400 Body weight 71 kg Lilia Rascon MD Work Phone: [facility] 11-14-2023 10:31-0400 Diastolic blood pressure 63 mm[Hg] Lilia Rascon MD Work Phone: [facility] 11-14-2023 10:31-0400 Heart rate 75 /min Lilia Rascon MD Work Phone: [facility] 11-14-2023 10:31-0400 Respiratory rate 18 /min Lilia Rascon MD Work Phone: [facility] 11-14-2023 10:31-0400 SaO2% (BldA) [Mass fraction] 97 % Lilia Rascon MD Work Phone: [facility] 11-14-2023 10:31-0400 Systolic blood pressure 117 mm[Hg] Lilia Rascon MD Work Phone: [facility] 10-09-2023 09:30-0500 Body height 165.1 cm Audra Barksdale Other [facility] Other 10-09-2023 09:30-0500 Body mass index (BMI) [Ratio] 25.59 kg/m2 Audra Barksdale Other [facility] Other 10-09-2023 09:30-0500 Body weight 69.76 kg Audra Barksdale Other [facility] Other 10-09-2023 09:30-0500 Diastolic blood pressure 59 mm[Hg] Audra Barksdale Other [employer] Other 10-09-2023 09:30-0500 Systolic blood pressure 87 mm[Hg] Audra Barksdale Other [employer] Other Encounters Encounter Date Encounter Type Care Provider Facility Start: 01-01-2024 End: 01-01-2024 ambulatory [facility] Start: 11-14-2023 End: 11-14-2023 ambulatory LILIA RASCON Facility:[facility] Start: 11-14-2023 End: 11-14-2023 Follow-up encounter Lilia Rascon MD Work Phone: [facility] Comment on above: Endometrial cancer ( HCC) (Primary Dx); Rectocele; Encounter for follow-up surveillance of endometrial cancer [Z08, Z85.42]; Stress incontinence of urine [N39.3] Start: 11-14-2023 End: 11-14-2023 Patient encounter procedure Lilia Rascon MD Work Phone: [facility] Start: 10-18-2023 Orders Only Jolynn Kumar APRN.CNP Work Phone: [facility]cology Oncology Comment on above: Endometrial cancer ( HCC) (Primary Dx) Start: 10-11-2023 End: 10-11-2023 ambulatory Audra Barksdale Other [facility] Other Start: 10-11-2023 Telephone [address] Barksdale [facility] Start: 10-09-2023 End: 10-09-2023 ambulatory Audra Barksdale Other [facility] Other Start: 10-09-2023 Patient encounter procedure Audra Barksdale [facility] Start: 04-04-2021 End: 04-05-2021 ambulatory AVTAR OATES Facility:[facility] Start: 09-21-2020 End: 09-22-2020 ambulatory AVTAR OATES Facility:[facility] Start: 02-06-2020 End: 02-07-2020 Patient encounter procedure PROVIDER UNKNOWN Facility:[facility] Procedures Date Procedure Procedure Detail Performing Clinician Start: 11-29-2017 Removal of suture Karen puja Shamir Other Start: 11-06-2017 Pre-surgery evaluation Audra Barksdale Other Depression screening Audra Barksdale Other Screening for malign ant neoplasm of breast Audra Barksdale Other Plan of Treatment Date Care Activity Detail Author Start: 09-03-2023 Advance Directive Discussion Advance Directive Discussion [facility] Start: 09-03-2023 Depression Assessment Depression Ass essment [facility] Start: 05-04-2023 Covid-19 Vaccine () Covid-19 Vaccine () [facility] Start: 05-04-2023 Influenza vaccination Influenza Vacc ine (#1) [facility] Start: 10-15-2020 Diabetes Screening Diabetes Screenin g [facility] Start: 10-07-2020 Screening for malign ant neoplasm of breast Mammogram Screening [facility] Start: 2018 Pneumococcal Vaccine : 65+ (1 of 1 - PCV) Pneumococcal Vaccine: 65+ (1 of 1 - PCV) [facility] Start: 2018 Screening for osteoporosis Bone Density Screening [facility] Start: 2013 RSV Vaccine (1 - 1-d ose 60+ series) RSV Vaccine (1 - 1-dose 60+ series) [facility] Start: 2003 Shingrix Vaccine (1 of 2) Shingrix Vaccine (1 of 2) [facility] Start: 1998 Lipid panel Lipid Screening [facility] Start: 1998 Screening for malign ant neoplasm of colon [facility] Start: 1993 Screening for malign ant neoplasm of breast Mammogram Screening [facility] Start: 1972 Urine microalbumin profile DTaP,Tdap,Td Vaccine (1 - Tdap) [facility] Start: 1971 Hepatitis C screening Hepatitis C Sc reening [facility] Start: 1955 Covid-19 Vaccine (#1) Covid-19 Vacci ne (#1) [facility] OUTSIDE SURG PATH SL SABINO REVIEW OUTSIDE SURG PATH SLIDE REVIEW Lab Routine Endometrial cancer (HCC) Ordered: 10/18/2023 [facility] Work Phone: Comment on above: Ordered: 10/18/2023 OUTSIDE SURG PATH SL SABINO REVIEW OUTSIDE SURG PATH SLIDE REVIEW Lab Routine Endometrial cancer (HCC) Ordered: 11/06/2023 [facility] Work Phone: Comment on above: Ordered: 11/06/2023 [facility] Payers Date Payer Category Payer Medicare AETNA MEDICARE A ETNA MEDICARE O [id number] 2021-Present [phone] [address] [place] [address] [facility] [id number] 1961 Medicare [id number] 1955 Unknown [id number] 1955 Unknown [id number] 1955 Unknown [id number] Unknown [id number] Social History Date Type Detail Facility Unknown if ever smoked [facility] Other Start: 11-14-2023 Sex Assigned At N [facility] [email or web address] Other Tobacco smoking status NDIS Tobacco smoking consumption unknown [facility] Work Phone: Start: 1955 Sex Assigned At Not on file [facility] Start: 11-14-2023 Tobacco smoking status NHIS Never smoked tobacco [facility] Start: 11-14-2023 Tobacco use and exposure Smokeless tobacco non-user [facility] Start: 11-14-2023 Alcohol intake Ex-drinker (finding) [facility] Start: 11-14-2023 History of Social function [facility] Progress note 01-01-2024 Note Date & Type Note Facility 01-01-2024 Note [facility] SUBJECTIVE Chief Complaint Patient presents with Follow-up 1 year Delaysidney Matthews is a 68 y.o. female here for follow-up. HPI PMHx: HTN, prinzmetal angina BP has been well controlled at home running 110-120/60-70s She c/o being easily fatigued. She has SOB with exertion. This has be noticeable since Hx COVID last year. She used the push mower yesterday she was SOB with this and she felt some chest heaviness/tightness. This resolved with rest. She admits she is not very active. Denies orthopnea, palpitations, LE edema. Patient Active Problem List Diagnosis Chest pain Crohn's colitis (CMS/HCC) Endometrial carcinoma (CMS/HCC) Fibrocystic breast disease (FCBD) Benign essential HTN Mixed hyperlipidemia No past medical history on file. Family History Problem Relation Name Age of Onset Supraventricular tachycardia Mother Heart attack Father Deep vein thrombosis Father Social History Tobacco Use Smoking status: Never Smokeless tobacco: Never Substance Use Topics Alcohol use: Not Currently Allergies Allergen Reactions Lisinopril Cough and Other Meperidine Hives Soy Tetracycline Hives and Swelling Review of Systems Constitutional: Positive for malaise/fatigue. Negative for chills, decreased appetite, fever and weight gain. Cardiovascular: Positive for chest pain (chest heaviness/tightness/discomfort) and dyspnea on exertion. Negative for irregular heartbeat, leg swelling, near-syncope, orthopnea, palpitations, paroxysmal nocturnal dyspnea and syncope. Hematologic/Lymphatic: Negative for bleeding problem. Does not bruise/bleed easily. OBJECTIVE Visit Vitals BP 128/76 (BP Location: Left arm, Patient Position: Sitting, BP Cuff Size: Adult) Pulse 74 Resp 16 Ht 1.651 m (5' 5 ) Wt 74.8 kg (165 lb) SpO2 99% BMI 27.46 kg/m??? Smoking Status Never BSA 1.85 m??? Medications: Current Outpatient Medications: aspirin 81 mg EC tablet, Take 1 tablet every day by oral route., Disp: , Rfl: atorvastatin (Lipitor) 20 mg tablet, Take 1 tablet (20 mg) by mouth at bedtime., Disp: 90 tablet, Rfl: 3 isosorbide mononitrate ER (Imdur) 30 mg 24 hr tablet, Take 1 tablet (30 mg) by mouth once daily as directed., Disp: 90 tablet, Rfl: 3 losartan (Cozaar) 100 mg tablet, Take 1 tablet every day by oral route., Disp: 90 tablet, Rfl: 3 metoprolol succinate XL (Toprol-XL) 50 mg 24 hr tablet, Take 1 tablet (50 mg) by mouth once daily as directed., Disp: 90 tablet, Rfl: 3 spironolactone (Aldactone) 25 mg tablet, Take 1 tablet (25 mg) by mouth in the morning. (Patient taking differently: Take 25 mg by mouth in the morning. Take 1/2 table by mouth daily), Disp: 90 tablet, Rfl: 3 Physical Exam Vitals reviewed. Constitutional: Appearance: Normal appearance. She is normal weight. HENT: Head: Normocephalic and atraumatic. Right Ear: External ear normal. Left Ear: External ear normal. Eyes: Extraocular Movements: Extraocular movements intact. Conjunctiva/sclera: Conjunctivae normal. Pupils: Pupils are equal, round, and reactive to light. Neck: Vascular: No carotid bruit. Cardiovascular: Rate and Rhythm: Normal rate and regular rhythm. Pulses: Normal pulses. Heart sounds: Normal heart sounds. Pulmonary: Effort: Pulmonary effort is normal. Breath sounds: Normal breath sounds. Abdominal: General: Bowel sounds are normal. Palpations: Abdomen is soft. Musculoskeletal: Cervical back: Neck supple. Right lower leg: No edema. Left lower leg: No edema. Skin: General: Skin is warm and dry. Neurological: General: No focal deficit present. Mental Status: She is alert and oriented to person, place, and time. Psychiatric: Mood and Affect: Mood normal. Behavior: Behavior normal. Thought Content: Thought content normal. Judgment: Judgment normal. Labs: 01/05/2023 Chol 96, trig 96, HDL 61, LDL 16 Cr 0.9, BUN 12, K 5.1, eGFR 69, AST 22, ALT 31 CBC - unremarkable Mag 1.8 Testing/Procedures: ECHO 04/04/2021 01/20/2020 Echo Left Ventricle: The left ventricle is normal size. Global left ventricular systolic function is normal. The EF is 55 % visually. Left ventricular wall thickness is normal. The septum is abnormal in its motion. Grade 1, mild diastolic dysfunction (abnormal relaxation). Right Ventricle: The right ventricle is normal in size. Normal right ventricular systolic function. Doppler studies suggest normal right sided pressures. Left Atrium: The left atrium is normal in size. Overall Conclusions: No significant valvular abnormalities 02/06/2020 Cardiac cath- normal coronary angiogram. Symptoms may be r/t coronary vasospasm ASSESSMENT/PLAN: Diagnoses and all orders for this visit: Dyspnea on exertion - Transthoracic echo (TTE) complete; Future - CBC; Future - Comprehensive metabolic panel; Future - Vitamin B12; Future - TSH3 Reflex to FT4; Future Other (more content not included)... [facility] Progress note 11-14-2023 Note Date & Type Note Facility 11-14-2023 Note HNO ID: [id number] Author: LILIA RASCON MD Service: ? Author Type: Physician Type: Progress Notes Filed: 11/14/2023 11:42 Note Text: DATE OF SERVICE: 11/14/2023 REASON FOR VISIT: history of endometrial cancer-establish care Consultation requested by Dr. Audra Barksdale. My final recommendations will be communicated back to the requesting physician by way of shared Medical record or letter to requesting physician via US mail. DIAGNOSIS: 2018 history stage IA grade 1 endometrial cancer HPI: Audrajevon Barksdale is a 68 yo female with a past medical history of HTN, HLD, angina, Crohn's disease and endometrial cancer. She was seen and treated at [facility]. She is here for follow up transfer of care. No vaginal discharge or bleeding. Patient states x 1 year has a prolapse, causing her to have to reduce it in order to have a good bowel movement. 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 No issues since 2018 surgery. SUBJECTIVE: Dillan Matthews reports she is feeling well. She was seen and treated at [facility]. She is here for follow up transfer of care since her previous flavoring oil filterer onc is no longer practing. No vaginal discharge or bleeding. Patient states she has had a prolapse for a year , causing her to have to reduce it in order to have a good bowel movement. No issues since 2018 surgery. 11/20/2017 FINAL DIAGNOSIS Review of slides from [facility] ([id number], 11/20/2017) 1. Uterus, cervix, bilateral ovaries and fallopian tubes, hysterectomy with bilateral salpingo-oophorectomy: - Cervix: No significant pathologic abnormality. - Endometrium: Endometrioid adenocarcinoma with squamous differentiation, FIGO grade 1, invasive into inner half of the myometrium; see comment. - Myometrium: Leiomyoma. - Left fallopian tube: Paratubal cysts. - Left ovary: No significant pathologic abnormality. - Right fallopian tube: Paratubal cysts. - Right ovary: Surface adhesions. 2. Periaortic lymph nodes, excision: Benign lymph nodes (0/3 per report). 3. Vagina, biopsy: Benign squamous mucosa. 4. Omentum, excision: Benign fibroadipose tissue. 5. Left pelvic lymph nodes, excision: Benign lymph nodes (0/3 per report). 6. Right pelvic lymph nodes, excision: Benign lymph nodes (0/5 per report). DATE OF LAST VISIT: n/a OBSTETRIC/ GYNECOLOGY HISTORY: Gynecologic surgery: see above LMP: menopausal Last Pap: Last HPV: PAST MEDICAL HISTORY Diagnosis Date Angina pectoris (HCC) Crohn's disease (HCC) Endometrial cancer (HCC) 2018 HLD (hyperlipidemia) HTN (hypertension) PAST SURGICAL HISTORY Procedure Laterality Date APPENDECTOMY BOWEL RESECTION HX REMOVAL GALLBLADDER No significant family history HEALTH MAINTENANCE: Last mammogram: 10/16/2023-negative DEXA-10/16/2023-osteopenia ECOG performance status ECOG PERFORMANCE STATUS: 0- Fully active, able to carry on all pre-disease performance w/o restriction. REVIEW OF SYSTEMS PAIN ASSESSMENT: Negative for pain, history of chronic pain, or current treatment for a chronic pain condition. GENERAL: No weight loss, malaise or fevers HEENT: Negative for frequent or significant headaches, No changes in hearing or vision, no nose bleeds or other nasal problems NECK: Negative for lumps, goiter, pain and significant neck swelling RESPIRATORY: Negative for cough, hemoptysis, wheezing, COPD, dyspnea or shortness of breath CARDIOVASCULAR: feels well, has angina history, on cardiac meds GI: No nausea, vomiting, or diarrhea : No history of dysuria, frequency or incontinence FOAMITE MIXER: Negative for abnormal vaginal bleeding, abnormal vaginal discharge MUSCULOSKELETAL: Negative for joint pain or swelling, back pain or muscle pain SKIN: Negative for lesions, rash, and itching PSYCH: situational depresson, recently HEMATOLOGY/LYMPHOLOGY: Negative for prolonged bleeding, bruising easily or swollen nodes ENDOCRINE: Negative for cold or heat intolerance, polyuria, polydipsia and goiter NEURO: No history of headaches, syncope, paralysis, seizures or tremors OBJECTIVE: VITALS: BP 117/63 Pulse 75 Temp (Src) 97.6 (Temporal) Resp 18 Wt 156 lb 8.4 oz (71.0kg) SpO2 97% GENERAL: alert, oriented, pleasant, and cooperative. ABDOMEN: Abdomen soft, non-tender, no palpable masses present HEENT: no adenopathy PELVIC: External genitalia, anus and urethral meatus are normal in appearance and without lesions. Vagina normal in appearance on speculum examination. Posterior and apical prolapse present, urethral hypermobility. Cervix surgically absent. Bimanual pelvic negative for pelvic masses. ASSESSMENT: 68 y/o female presenting for endometrial cancer surveillance, stage IA grade 1 endometrial cancer s/p staging [place] [address] Velez in [place]. She has no acute complaints today aside from vaginal bulge and urinary incontience. IA grade 1 EC SAMANTHA on exam today (more content not included)... [facility] History of Present illness Narrative 11-14-2023 Lilia Rascon MD - 11/14/2023 10:00 AM EDT Note Date & Type Note Facility 11-14-2023 History of Presen t illness Narrative Images from the original note were not included. DATE OF SERVICE: 11/14/2023 REASON FOR VISIT: history of endometrial cancer-establish care Consultation requested by Dr. Audra Barksdale. My final recommendations will be communicated back to the requesting physician by way of shared Medical record or letter to requesting physician via US mail. DIAGNOSIS: 2018 history stage IA grade 1 endometrial cancer HPI: Audra Barksdale is a 68 yo female with a past medical history of HTN, HLD, angina, Crohn's disease and endometrial cancer. She was seen and treated at [facility]. She is here for follow up transfer of care. No vaginal discharge or bleeding. Patient states x 1 year has a prolapse, causing her to have to reduce it in order to have a good bowel movement. 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 No issues since 2018 surgery. SUBJECTIVE: Dillan Matthews reports she is feeling well. [facility]. She is here for follow up transfer of care since her previous flavoring oil filterer onc is no longer practing. No vaginal discharge or bleeding. Patient states she has had a prolapse for a year , causing her to have to reduce it in order to have a good bowel movement. No issues since 2018 surgery. 11/20/2017 FINAL DIAGNOSIS Review of slides from [facility] ([id number], 11/20/2017) 1. Uterus, cervix, bilateral ovaries and fallopian tubes, hysterectomy with bilateral salpingo-oophorectomy: - Cervix: No significant pathologic abnormality. - Endometrium: Endometrioid adenocarcinoma with squamous differentiation, FIGO grade 1, invasive into inner half of the myometrium; see comment. - Myometrium: Leiomyoma. - Left fallopian tube: Paratubal cysts. - Left ovary: No significant pathologic abnormality. - Right fallopian tube: Paratubal cysts. - Right ovary: Surface adhesions. 2. Periaortic lymph nodes, excision: Benign lymph nodes (0/3 per report). 3. Vagina, biopsy: Benign squamous mucosa. 4. Omentum, excision: Benign fibroadipose tissue. 5. Left pelvic lymph nodes, excision: Benign lymph nodes (0/3 per report). 6. Right pelvic lymph nodes, excision: Benign lymph nodes (0/5 per report). DATE OF LAST VISIT: n/a OBSTETRIC/ GYNECOLOGY HISTORY: Gynecologic surgery: see above LMP: menopausal Last Pap: Last HPV: PAST MEDICAL HISTORY Diagnosis Date Angina pectoris (HCC) Crohn's disease (HCC) Endometrial cancer (HCC) 2018 HLD (hyperlipidemia) HTN (hypertension) PAST SURGICAL HISTORY Procedure Laterality Date APPENDECTOMY BOWEL RESECTION HX REMOVAL GALLBLADDER No significant family history HEALTH MAINTENANCE: Last mammogram: 10/16/2023-negative DEXA-10/16/2023-osteopenia ECOG performance status ECOG PERFORMANCE STATUS: 0- Fully active, able to carry on all pre-disease performance w/o restriction. REVIEW OF SYSTEMS PAIN ASSESSMENT: Negative for pain, history of chronic pain, or current treatment for a chronic pain condition. GENERAL: No weight loss, malaise or fevers HEENT: Negative for frequent or significant headaches, No changes in hearing or vision, no nose bleeds or other nasal problems NECK: Negative for lumps, goiter, pain and significant neck swelling RESPIRATORY: Negative for cough, hemoptysis, wheezing, COPD, dyspnea or shortness of breath CARDIOVASCULAR: feels well, has angina history, on cardiac meds GI: No nausea, vomiting, or diarrhea : No history of dysuria, frequency or incontinence FOAMITE MIXER: Negative for abnormal vaginal bleeding, abnormal vaginal discharge MUSCULOSKELETAL: Negative for joint pain or swelling, back pain or muscle pain SKIN: Negative for lesions, rash, and itching PSYCH: situational depresson, recently HEMATOLOGY/LYMPHOLOGY: Negative for prolonged bleeding, bruising easily or swollen nodes ENDOCRINE: Negative for cold or heat intolerance, polyuria, polydipsia and goiter NEURO: No history of headaches, syncope, paralysis, seizures or tremors OBJECTIVE: VITALS: BP 117/63 Pulse 75 Temp (Src) 97.6 (Temporal) Resp 18 Wt 156 lb 8.4 oz (71.0kg) SpO2 97% GENERAL: alert, oriented, pleasant, and cooperative. ABDOMEN: Abdomen soft, non-tender, no palpable masses present HEENT: no adenopathy PELVIC: External genitalia, anus and urethral meatus are normal in appearance and without lesions. Vagina normal in appearance on speculum examination. Posterior and apical prolapse present, urethral hypermobility. Cervix surgically absent. Bimanual pelvic negative for pelvic masses. ASSESSMENT: 68 y/o female presenting for endometrial cancer surveillance, stage IA grade 1 endometrial cancer s/p staging [place] [address] Velez in [place]. She has no acute complaints today aside from vaginal bulge and urinary incontience. IA grade 1 EC SAMANTHA on exam today Rectocele Urogyn referral placed Urinary incontinence Urogyn referral placed Health maintenance Patient instructed to follow up with PCP for age appropriate screening PLAN: Referral to uro flavoring oil filterer Follow-up annually for flavoring oil filterer visit, likely relocating this fall and patient will call to make follow up appt Medical Decision Making: Problems: Moderate: 2+ stable chronic illnesses Data: Unique source(s) for external note(s) reviewed: 1 Unique test result(s) reviewed: 1 Risk: Low: Low risk from testing/treatment Medical Decision Making Level: 3 - Low Scribed by [address] [employer] Blind Cleaner And Repairer for Lilia Rascon MD on November 14, 2023. MD Audra Dill MD Marcia E Braun ([facility]) [facility] [facility] [address] documented in this encounter [facility] Evaluation note 10-09-2023 Note Date & Type Note Facility 10-09-2023 Evaluation note Encounter Date Diagnosis Assessment Notes Oct, Medicare annual wellness visit, subsequent (ICD-10 - Z00.00) Personalized health advice was given to the beneficiary including a written plan for screenings discussed and provided. Advanced care planning reviewed and/or information given as requested. Additional counseling was provided here today in regards to, [ ]. The above visit was performed by [ ], under direct supervision of [ ]. Document reviewed and amended by provider signed below. Oct, Essential (primary) hypertension (ICD-10 - I10) Established w [facility] Cardio and sees them yearly. Discussed low bp today - Delayne denies symptoms Oct, Left elbow pain (ICD-10 - M25.522) Fell at home, pain over olecranon Oct, History of uterine cancer (ICD-10 - Z85.42) Pt's previous flavoring oil filterer-onc is no longer in practice. Oct, Screening mammogram, encounter for (ICD-10 - Z12.31) Oct, Menopause (ICD-10 - Z78.0) Agrees to DEXA [facility] Other Evaluation note Note Date & Type Note Facility Evaluation note No Information [facility] Other Evaluation note Note Date & Type Note Facility Evaluation note Diagnosis Endometrial cancer (HCC)- Primary Malignant neoplasm of corpus uteri, except isthmus documented in this encounter [facility] Evaluation note Note Date & Type Note Facility Evaluation note Diagnosis Endometrial cancer (HCC)- Primary Malignant neoplasm of corpus uteri, except isthmus Rectocele Encounter for follow-up surveillance of endometrial cancer [Z08, Z85.42] Unspecified follow-up examination Stress incontinence of urine [N39.3] documented in this encounter [facility] History general Narrative - Reported Note Date & Type Note Facility History general Narrative - Reported Type Medical History Problem Title : comp liance with medical treatment, Problem Description : compliance with medical treatment, Problem Comment : Done, Problem Status : Active,, Medical History Problem Title : Croh n's Disease, Problem Status : Active,, Medical History Problem Title : Depr ession, Problem Status : Active,, Medical History Problem Title : Depr ession Screening, Problem Description : Depression Screening, Problem Comment : Negative, Problem Status : Active,, Medical History Problem Title : Hype rtension, Problem Status : Active,, Medical History Problem Title : no k nown problems, Problem Description : no known problems, Problem Comment : F, Problem Status : Active,, Medical History Problem Title : Oste openia, Problem Status : Active,, Medical History Problem Title : past medical history E&M, Problem Description : past medical history E&M, Problem Comment : Chron's disease - in remission Endometrial cancer - no mets, nl LN 2018, Problem Status : Active,, Medical History Problem Title : past medical history reviewed, Problem Description : past medical history reviewed, Problem Comment : reviewed - no changes required, Problem Status : Active,, Medical History Problem Title : PHQ2 Questionairre Score, Problem Description : PHQ2 Questionairre Score, Problem Comment : 0, Problem Status : Active,, Medical History Problem Title : PHQ9 Question One score, Problem Description : PHQ9 Question One score, Problem Comment : 0, Problem Status : Active,, Medical History Problem Title : PHQ9 Question Two score, Problem Description : PHQ9 Question Two score, Problem Comment : 0, Problem Status : Active,, Medical History Problem Title : Prob lems Reconciled, Problem Status : Active,, Surgical History appendectomy 1975 Surgical History bowel resection - Crohn's 1978 Surgical History fatty mass removed from abdomen 2006 Surgical History cholecystectomy [facility] Other Summary Purpose Family History No Family History Records FoundNo Family History Records FoundNo Family History Records FoundNo Family History Records Found Advance Directives No Advanced Directives Records FoundNo Advanced Directives Records FoundNo Advanced Directives Records FoundNo Advanced Directives Records Found Reason for Referral Reason [facility] office - hx of uterine cancer, prev pt of Dr. Velez in [place]. Would like to re-establish and have an exam. Diagnosis 1 History of uterine c ancer (Z85.42) Referral Organization [facility] Referring Provider First Name Audra Referring Provider Last Name Shamir Referring Provider Specialty Family Medi cine Referred Organization [facility] Referred Provider LILIA RASCON Referred Address [address] [place] [address] [place], [place],[address] Referred Provider Specialty Gynecologic Oncology Referral Priority Routine Specialty Diagnoses / Procedures Referred By Ajith ledezma Referred To Contact Diagnoses Rectocele Procedures CONSULT TO URO GYNECOLOGY OFFICE/OUTPATIENT [facility] 60 MINUTES Lilia Rascon MD [address] [place] [address] Referral ID Status Reason Start Date Expiration Date Visits Requested Visits Authorized [id number] Pending Review PCP Requested Referral Auto-Generate d Referral 11/14/2023 11/13/2024 1 1 Additional Source Comments INFORMATION SOURCE (unrecogn ized section and content) DATE CREATED AUTHOR 02/10/2020 [facility] DATE CREATED AUTHOR AUTHOR'S ORGANIZ ATION 04/09/2021 [facility] DATE CREATED AUTHOR AUTHOR'S ORGANIZ ATION 11/15/2023 [facility] DATE CREATED AUTHOR AUTHOR'S ORGANIZ ATION 01/09/2024 [facility] REASON FOR VISIT (unrecogniz ed section and content) Reason Comments Consult Source Comments (unrecognize d section and content) In the event this informatio n is protected by the Federal Confidentiality of Alcohol and Drug Abuse Patient Records regulations: The Federal rules restrict any use of the information to criminally investigate or prosecute any alcohol or drug abuse patient.[facility] the event this information is protected by the Federal Confidentiality of Alcohol and Drug Abuse Patient Records regulations: The Federal rules restrict any use of the information to criminally investigate or prosecute any alcohol or drug abuse patient.[facility] Care Teams (unrecognized sec tion and content) Social Economist Relationship Specialty Start Date End Date Audra Barksdale MD [facility] [place] [id number] PCP - General Family Medicine 10/12/23 Social Economist Relationship Specialty Start Date End Date Audra Barksdale MD [facility] [place] [address] PCP - General Family Medicine 10/12/23 FOR RECORDS PERTAINING TO PATIENTS WHO ARE OR HAVE BEEN ENROLLED IN A CHEMICAL DEPENDENCY/SUBSTANCEABUSE PROGRAM, SOME INFORMATION MAY BE OMITTED. This clinical summary was aggregated from multiple sources. Caution should be exercised in using it in the provision of clinical care. This summary normalizes information from multiple sources, and as a consequence, information in this document may materially change the coding, format and clinical context of patient data. In addition, data may be omitted in some cases. CLINICAL DECISIONS SHOULD BE BASED ON THE PRIMARY CLINICAL RECORDS. [facility]. provides no warranty or guarantee of the accuracy or completeness of information in this document.
== END 2024-05-06 12:08 | disposition home or self-care (01) ==
LOC: RAD 12:09
PROVIDERS: PCP Family Medicine; Visit Provider Family Medicine
DX: R10.31 Right lower quadrant pain (principal); M16.11 Unilateral primary osteoarthritis, right hip; M47.816 Spondylosis without myelopathy or radiculopathy, lumbar region
CPT/HCPCS: 72100; 73502